=== PATIENT | female | born 1970 | race Caucasian/White ===

== ENCOUNTER 2021-11-19 21:40 | Emergency (ER) | payer BC ==
[~2021-11-19] VITALS: Ht 170.2 cm; Wt 72.0 kg
[~2021-11-19 21:40] MED LIST: MIRENA IU; PROCTOSOL HC2.5 % RE; ZITHROMAX250 MG PO; ZITHROMAX500 MG PO; ZOFRAN4 MG/TAB PO
[2021-11-19 22:03] VITALS: BP 162/85
[2021-11-19 22:16] VITALS: BP 138/83
[2021-11-19 22:30] VITALS: BP 150/85
[2021-11-19 22:39] LABS: URINE BILIRUBIN - DIPSTICK NEGATIVE (NEGATIVE); URINE BLOOD DIPSTICK MODERATE (NEGATIVE); URINE COLOR YELLOW; URINE GLUCOSE - DIPSTICK NEGATIVE (NEGATIVE); URINE KETONE NEGATIVE (NEGATIVE); URINE LEUK ESTERASE NEGATIVE (NEGATIVE); URINE NITRITE - DIPSTICK NEGATIVE (Negative); URINE PH 6.5 (4.5-8.0); URINE PROTEIN - DIPSTICK NEGATIVE (NEG-TRACE); URINE SPECIFIC GRAVITY <=1.005; URINE UROBILINOGEN - DIPSTICK 0.2 E.U./dL (0.2)
[2021-11-19 22:43] LABS: HEMATOCRIT 36.6 % (37.0-47.0); HEMOGLOBIN 12.2 g/dl (12.0-16.0); IMMATURE GRANULOCYTES 0.1 % (0.0-5.0); MEAN CELL VOLUME 89.5 fL CALC (80.0-100.0); MEAN CORPUSCULAR HGB 29.8 pG CALC (26.0-32.0); MEAN CORPUSCULAR HGB CONC 33.3 g/dL CAL (32.0-36.0); NEUT# 4.61 thou/uL (2.00-7.15); RED BLOOD COUNT 4.09 mill/uL (4.20-5.60); RED CELL DISTRI WIDTH 12.8 % (11.5-15.5)
[2021-11-19 22:44] LABS: ALBUMIN 4.5 g/dL (3.2-5.0); ALKALINE PHOSPHATASE 80 u/l (38-126); AMYLASE 81 u/l (30-110); ANION GAP 10 (6-22 (CALC)); BILIRUBIN, TOTAL 0.5 mg/dL (0.0-1.4); BUN 12 mg/dL (7-17); BUN/CREATININE RATIO 16 (12-20 (CALC)); CARBON DIOXIDE 32 mmol/l (22-30); CHLORIDE 102 mmol/l (95-108); CREATININE 0.7 mg/dL (0.5-1.0); GFR FOR AFR.AMER. > 60 ML/MIN (>=60 (CALC)); GFR OTHER RACES > 60 ML/MIN (>=60 (CALC)); LIPASE 109 u/l (23-300); POTASSIUM 4.3 mmol/l (3.5-5.1); SGOT/AST 26 u/l (14-36); SODIUM 139 mmol/l (137-146); TOTAL PROTEIN 7.4 g/dL (6.3-8.2)
[2021-11-19 22:48] LABS: URINE SQUAMOUS EPITHELIAL CELL MODERATE EPI/hpf (0-FEW)
[2021-11-19 23:00] VITALS: BP 145/84
[2021-11-19] MEDS ORDERED: LORTAB 1010 MG PO (23:14)
[2021-11-19 23:16] VITALS: BP 129/78
[2021-11-19 23:21] VITALS: BP 129/78
== END 2021-11-19 23:27 | disposition home or self-care (01) | DRG 690 ==
LOC: ED 21:40
PROVIDERS: Emergency Medicine
DX: N39.0 Urinary tract infection, site not specified (principal)
CPT/HCPCS: Q9967